=== PATIENT | male | born 1960 | race African-American/Black ===

== ENCOUNTER 2018-03-15 05:40 | Inpatient (IN) ==
[2018-03-15 06:46] LABS: Basophils % 0.3 % (0.0-0.8); Eosinophils % 0.2 % (0.00-10.9); Hematocrit 43.1 VOL% (42.0-52.0); Hemoglobin 14.7 GM/DL (14.0-18.0); Immature Granulocytes % 0.6 %; Immature Granulocytes Absolute 0.07 #; Lymphocytes # 0.9 10*3/uL (1.4-4.0); Lymphocytes % 7.2 % (21.2-54.2); Mean Corpuscular HGB Conc 34.1 GM/DL (32-36); Mean Corpuscular Hemoglobin 33 PG (27-34); Mean Corpuscular Volume 95.6 FL (87-102); Mean Platelet Volume 10.7 FL (9.6-12.0); Monocytes # 0.6 10*3/uL (0.11-0.8); Monocytes % 4.6 % (1.7-12.7); Neutrophils # 11.1 10*3/uL (1.4-7.4); Neutrophils % 87.1 % (38.7-73.9); Platelet Count 173 T/CUMM (130-400); Red Blood Count 4.51 MC/CUMM (3.8-5.5); Red Cell Distribution Width 14.9 % (9.3-17.3); White Blood Count 12.7 T/CUMM (4-12)
[2018-03-15 06:54] LABS: INR 1.2; PT Patient Result 12.6 SECS
[2018-03-15] MEDS ORDERED: FUROSEMIDE 40 MG/4 ML VIAL IV STA (06:55)
[2018-03-15 07:26] LABS: Alanine Aminotransferase 110 U/L (16-61); Albumin 3.3 G/DL (3.4-5.0); Alkaline Phosphatase 66 U/L (45-117); Aspartate Amino Transferase 147 U/L (0-37); Blood Urea Nitrogen 14 MG/DL (7-18); Calcium 8.5 MG/DL (8.5-10.1); Glucose 114 MG/DL (74-106); Osmolality,Calculated 278.5 MOS/KG (273-304); Potassium 3.7 MMOL/L (3.5-5.1); Sodium 139 MMOL/L (136-145); Total Protein 7.6 G/DL (6.4-8.3)
[2018-03-15 07:28] LABS: Troponin I Only 0.094 NG/ML (0.00-0.045)
[2018-03-15] MEDS: HEPARIN 5,000 UNIT/1 ML VIAL SUBCUT SCH (15:14)
[2018-03-15] MEDS: FUROSEMIDE 40 MG/4 ML VIAL IV SCH (15:32)
[2018-03-15] MEDS: ACETAMINOPHEN 325 MG TABLET PO PRN (16:33)
[2018-03-15] MEDS: MAGNESIUM OXIDE 400 MG TABLET PO SCH (20:59)
[2018-03-15] MEDS ORDERED: CARVEDILOL 6.25 MG TABLET PO SCH (21:00)
[2018-03-15] MEDS: CARVEDILOL 12.5 MG TABLET PO SCH (21:00)
[2018-03-15] MEDS: TERAZOSIN 5 MG CAPSULE PO SCH (21:00)
[2018-03-16] MEDS: HEPARIN 5,000 UNIT/1 ML VIAL SUBCUT SCH ×2 (03:59→15:48)
[2018-03-16 06:17] LABS: Basophils % 0.5 % (0.0-0.8); Eosinophils # 0.1 10*3/uL (0.0-0.87); Eosinophils % 1.7 % (0.00-10.9); Hematocrit 41.5 VOL% (42.0-52.0); Hemoglobin 13.8 GM/DL (14.0-18.0); Immature Granulocytes % 0.5 %; Immature Granulocytes Absolute 0.03 #; Lymphocytes # 2.2 10*3/uL (1.4-4.0); Lymphocytes % 33.1 % (21.2-54.2); Mean Corpuscular HGB Conc 33.3 GM/DL (32-36); Mean Corpuscular Hemoglobin 32 PG (27-34); Mean Corpuscular Volume 96.5 FL (87-102); Mean Platelet Volume 12.6 FL (9.6-12.0); Monocytes # 0.6 10*3/uL (0.11-0.8); Monocytes % 9.7 % (1.7-12.7); Neutrophils # 3.5 10*3/uL (1.4-7.4); Neutrophils % 54.5 % (38.7-73.9); Red Cell Distribution Width 15.2 % (9.3-17.3)
[2018-03-16 06:21] LABS: Risk Ratio 3.97; VLDL CHOLESTEROL 23.2 MG/DL
[2018-03-16 06:22] LABS: Platelet Count 120 T/CUMM (130-400); White Blood Count 6.5 T/CUMM (4-12)
[2018-03-16 06:25] LABS: Albumin 3.1 G/DL (3.4-5.0); Bilirubin,Total 0.7 MG/DL (0.2-1.0); Calcium 8.5 MG/DL (8.5-10.1); Osmolality,Calculated 279.5 MOS/KG (273-304); Potassium 3.4 MMOL/L (3.5-5.1); Total Protein 7.4 G/DL (6.4-8.3)
[2018-03-16] MEDS: FUROSEMIDE 40 MG/4 ML VIAL IV SCH ×2 (08:58→18:13)
[2018-03-16] MEDS: POTASSIUM CHLORIDE 20 MEQ TABLET PO PRN ×3 (10:04→14:20)
[2018-03-16] MEDS: ASPIRIN EC 81 MG TABLET PO SCH (10:12)
[2018-03-16] MEDS: CARVEDILOL 12.5 MG TABLET PO SCH ×2 (10:13→22:08)
[2018-03-16] MEDS: MAGNESIUM OXIDE 400 MG TABLET PO SCH ×2 (10:15→22:07)
[2018-03-16] MEDS: LOSARTAN 25 MG TABLET PO SCH (10:16)
[2018-03-16] MEDS: POTASSIUM CHLORIDE 20 MEQ TABLET PO SCH (10:16)
[2018-03-16] MEDS: THIAMINE 100 MG TABLET PO SCH (10:17)
[2018-03-16] MEDS: OMEGA 3 ACID ETHYL ESTERS 1 GM CAPSULE PO SCH (10:17)
[2018-03-16] MEDS: PANTOPRAZOLE 40 MG TABLET PO SCH (10:18)
[2018-03-16] MEDS: ALLOPURINOL 100 MG TABLET PO SCH (10:20)
[2018-03-16] MEDS ORDERED: POTASSIUM CHLORIDE RIDER 10 MEQ in PREMIX 1 EACH IV PRN (14:44)
[2018-03-16] MEDS ORDERED: MAGNESIUM SULF RIDER 2 GM in PREMIX 1 EACH IV PRN (14:44)
[2018-03-16] MEDS ORDERED: diphenhydrAMINE CAP 25 MG CAPSULE PO ONE (14:44)
[2018-03-16] MEDS ORDERED: DIAZEPAM 5 MG TABLET PO ONE (14:44)
[2018-03-16] MEDS: TERAZOSIN 5 MG CAPSULE PO SCH (22:07)
[2018-03-17] MEDS: HEPARIN 5,000 UNIT/1 ML VIAL SUBCUT SCH (03:28)
[2018-03-17] MEDS ORDERED: diphenhydrAMINE CAP 25 MG CAPSULE PO ONE (06:00)
[2018-03-17] MEDS ORDERED: DIAZEPAM 5 MG TABLET PO ONE (06:00)
[2018-03-17 08:36] LABS: Basophils % 0.5 % (0.0-0.8); Eosinophils # 0.1 10*3/uL (0.0-0.87); Eosinophils % 1.4 % (0.00-10.9); Hematocrit 44.1 VOL% (42.0-52.0); Hemoglobin 14.8 GM/DL (14.0-18.0); Immature Granulocytes % 0.3 %; Immature Granulocytes Absolute 0.02 #; Lymphocytes # 2.2 10*3/uL (1.4-4.0); Lymphocytes % 29.9 % (21.2-54.2); Mean Corpuscular HGB Conc 33.6 GM/DL (32-36); Mean Corpuscular Hemoglobin 32 PG (27-34); Mean Corpuscular Volume 96.5 FL (87-102); Mean Platelet Volume 11.5 FL (9.6-12.0); Monocytes # 0.6 10*3/uL (0.11-0.8); Monocytes % 8.2 % (1.7-12.7); Neutrophils # 4.4 10*3/uL (1.4-7.4); Neutrophils % 59.7 % (38.7-73.9); Platelet Count 162 T/CUMM (130-400); Red Blood Count 4.57 MC/CUMM (3.8-5.5); White Blood Count 7.3 T/CUMM (4-12)
[2018-03-17 08:54] LABS: Osmolality,Calculated 276.7 MOS/KG (273-304); Potassium 4.5 MMOL/L (3.5-5.1)
[2018-03-17] MEDS: ASPIRIN EC 81 MG TABLET PO SCH (09:28)
[2018-03-17] MEDS: LOSARTAN 25 MG TABLET PO SCH (09:28)
[2018-03-17] MEDS: POTASSIUM CHLORIDE 20 MEQ TABLET PO SCH (09:28)
[2018-03-17] MEDS: CARVEDILOL 12.5 MG TABLET PO SCH (09:28)
[2018-03-17] MEDS: OMEGA 3 ACID ETHYL ESTERS 1 GM CAPSULE PO SCH (09:28)
[2018-03-17] MEDS: MAGNESIUM OXIDE 400 MG TABLET PO SCH ×2 (09:29→21:49)
[2018-03-17] MEDS: FUROSEMIDE 40 MG/4 ML VIAL IV SCH ×2 (09:29→17:30)
[2018-03-17] MEDS: PANTOPRAZOLE 40 MG TABLET PO SCH (09:29)
[2018-03-17] MEDS: THIAMINE 100 MG TABLET PO SCH (09:29)
[2018-03-17] MEDS: ALLOPURINOL 100 MG TABLET PO SCH (09:29)
[2018-03-17] MEDS ORDERED: SODIUM CHLORIDE 0.9% 1,000 ML IV SCH (10:00)
[2018-03-17] MEDS ORDERED: MIDAZOLAM 2 MG/2 ML VIAL ONE (13:20)
[2018-03-17] MEDS ORDERED: fentaNYL 100 MCG/2 ML VIAL ONE (13:20)
[2018-03-17] MEDS ORDERED: LIDOCAINE 1% 20 ML VIAL ONE (13:20)
[2018-03-17] MEDS ORDERED: HEPARIN 5,000 UNIT/1 ML VIAL ONE (13:33)
[2018-03-17] MEDS ORDERED: TIROFIBAN 5,000 MCG/100 ML PREMIX IV ONE (13:40)
[2018-03-17] MEDS ORDERED: ASPIRIN 325 MG TABLET ONE (13:40)
[2018-03-17] MEDS ORDERED: NITROGLYCERIN DRIP 50 MG/250 ML BOTTLE IV ONE (14:28)
[2018-03-17] MEDS ORDERED: TICAGRELOR 90 MG TABLET ONE (14:39)
[2018-03-17] MEDS ORDERED: FUROSEMIDE 40 MG/4 ML VIAL ONE (15:09)
[2018-03-17] MEDS ORDERED: FUROSEMIDE 40 MG/4 ML VIAL IV STA (15:19)
[2018-03-17] MEDS ORDERED: ALBUTEROL/IPRATROPIUM 3 ML NEB RESP TX STA (15:40)
[2018-03-17 17:38] LABS: Troponin I Only 0.929 NG/ML (0.00-0.045)
[2018-03-17] MEDS: TICAGRELOR 90 MG TABLET PO SCH (21:48)
[2018-03-17] MEDS: ROSUVASTATIN 10 MG TABLET PO SCH (21:48)
[2018-03-17] MEDS: TERAZOSIN 5 MG CAPSULE PO SCH (21:48)
[2018-03-18 00:38] LABS: Troponin I Only 0.976 NG/ML (0.00-0.045)
[2018-03-18 04:19] LABS: Basophils % 0.3 % (0.0-0.8); Eosinophils % 0.5 % (0.00-10.9); Hematocrit 43.8 VOL% (42.0-52.0); Hemoglobin 14.5 GM/DL (14.0-18.0); Immature Granulocytes % 0.3 %; Immature Granulocytes Absolute 0.03 #; Lymphocytes # 1.6 10*3/uL (1.4-4.0); Lymphocytes % 18.3 % (21.2-54.2); Mean Corpuscular HGB Conc 33.1 GM/DL (32-36); Mean Corpuscular Hemoglobin 32 PG (27-34); Mean Corpuscular Volume 95.8 FL (87-102); Mean Platelet Volume 11.3 FL (9.6-12.0); Monocytes # 0.8 10*3/uL (0.11-0.8); Monocytes % 9.3 % (1.7-12.7); Neutrophils # 6.3 10*3/uL (1.4-7.4); Neutrophils % 71.3 % (38.7-73.9); Platelet Count 181 T/CUMM (130-400); Red Blood Count 4.57 MC/CUMM (3.8-5.5); Red Cell Distribution Width 14.8 % (9.3-17.3); White Blood Count 8.8 T/CUMM (4-12)
[2018-03-18 04:43] LABS: Albumin 3.3 G/DL (3.4-5.0); Osmolality,Calculated 281.3 MOS/KG (273-304); Potassium 3.5 MMOL/L (3.5-5.1); Total Protein 8.1 G/DL (6.4-8.3)
[2018-03-18] MEDS: FUROSEMIDE 40 MG/4 ML VIAL IV SCH ×2 (08:10→17:00)
[2018-03-18 08:17] LABS: Troponin I Only 0.967 NG/ML (0.00-0.045)
[2018-03-18] MEDS: ASPIRIN EC 81 MG TABLET PO SCH (09:00)
[2018-03-18] MEDS: PANTOPRAZOLE 40 MG TABLET PO SCH (09:00)
[2018-03-18] MEDS: LOSARTAN 25 MG TABLET PO SCH (09:00)
[2018-03-18] MEDS: MAGNESIUM OXIDE 400 MG TABLET PO SCH ×2 (09:00→21:24)
[2018-03-18] MEDS: ALLOPURINOL 100 MG TABLET PO SCH (09:00)
[2018-03-18] MEDS: OMEGA 3 ACID ETHYL ESTERS 1 GM CAPSULE PO SCH (09:00)
[2018-03-18] MEDS: THIAMINE 100 MG TABLET PO SCH (09:00)
[2018-03-18] MEDS: POTASSIUM CHLORIDE 20 MEQ TABLET PO SCH (09:00)
[2018-03-18] MEDS: TICAGRELOR 90 MG TABLET PO SCH (09:08)
[2018-03-18] MEDS ORDERED: CLOPIDOGREL 300 MG TABLET PO ONE (09:10)
[2018-03-18] MEDS: ACETAMINOPHEN 325 MG TABLET PO PRN ×2 (10:45→21:32)
[2018-03-18] MEDS ORDERED: INSULIN REGULAR 100 UNIT/ML ONE (11:43)
[2018-03-18] MEDS: CARVEDILOL 3.125 MG TABLET PO SCH (19:21)
[2018-03-18] MEDS: ROSUVASTATIN 10 MG TABLET PO SCH (21:25)
[2018-03-18] MEDS: TERAZOSIN 5 MG CAPSULE PO SCH (21:25)
[2018-03-19 05:38] LABS: Calcium 8.6 MG/DL (8.5-10.1); Osmolality,Calculated 282.3 MOS/KG (273-304); Potassium 3.7 MMOL/L (3.5-5.1)
[2018-03-19 08:39] VITALS: BP 128/84
[2018-03-19] MEDS: OMEGA 3 ACID ETHYL ESTERS 1 GM CAPSULE PO SCH (08:51)
[2018-03-19] MEDS: POTASSIUM CHLORIDE 20 MEQ TABLET PO SCH (08:51)
[2018-03-19] MEDS: THIAMINE 100 MG TABLET PO SCH (08:52)
[2018-03-19] MEDS: ASPIRIN EC 81 MG TABLET PO SCH (08:53)
[2018-03-19] MEDS: ALLOPURINOL 100 MG TABLET PO SCH (08:53)
[2018-03-19] MEDS: MAGNESIUM OXIDE 400 MG TABLET PO SCH (08:54)
[2018-03-19] MEDS: PANTOPRAZOLE 40 MG TABLET PO SCH (08:54)
[2018-03-19] MEDS: CARVEDILOL 3.125 MG TABLET PO SCH (08:55)
[2018-03-19] MEDS: LOSARTAN 25 MG TABLET PO SCH (08:55)
[2018-03-19] MEDS: FUROSEMIDE 40 MG/4 ML VIAL IV SCH (08:56)
[2018-03-19] MEDS ORDERED: CLOPIDOGREL 75 MG TABLET PO SCH (09:00)
== END 2018-03-19 15:50 | disposition home or self-care (01) | DRG 246 ==
LOC: N.ED 05:40 → N.EDINP 09:24 → SUATTDRO 09:24 → N.2E 10:18 → N.TELES 03-17 17:16 → N.ICU 03-17 22:05
PROVIDERS: ADMIT Internal Medicine; ATTEND Internal Medicine
PROC: CLCCHCL (ICD-10-PCS; 2018-03-17 13:45)

== ENCOUNTER 2018-12-19 11:14 | Inpatient (IN) ==
[2018-12-19] MEDS ORDERED: AMPICILLIN/SULBACTAM 3,000 MG in SODIUM CHLORIDE 0.9% 100 ML IV STA (12:25)
[2018-12-19] MEDS ORDERED: SODIUM CHLORIDE 0.9% 1,000 ML IV STA (12:25)
[2018-12-19 13:50] LABS: Basophils % 0.5 % (0.0-0.8); Eosinophils # 0.1 10*3/uL (0.0-0.87); Eosinophils % 1.6 % (0.00-10.9); Hematocrit 41.4 VOL% (42.0-52.0); Hemoglobin 13.7 GM/DL (14.0-18.0); Immature Granulocytes % 0.4 %; Immature Granulocytes Absolute 0.03 #; Lymphocytes # 1.8 10*3/uL (1.4-4.0); Lymphocytes % 24.5 % (21.2-54.2); Mean Corpuscular HGB Conc 33.1 GM/DL (32-36); Mean Corpuscular Hemoglobin 32 PG (27-34); Mean Corpuscular Volume 96.5 FL (87-102); Mean Platelet Volume 10.5 FL (9.6-12.0); Monocytes # 0.7 10*3/uL (0.11-0.8); Neutrophils # 4.6 10*3/uL (1.4-7.4); Platelet Count 179 T/CUMM (130-400); Red Blood Count 4.29 MC/CUMM (3.8-5.5); Red Cell Distribution Width 14.6 % (9.3-17.3); White Blood Count 7.3 T/CUMM (4-12)
[2018-12-19 14:13] LABS: Bilirubin,Total 0.4 MG/DL (0.2-1.0); Calcium 8.4 MG/DL (8.5-10.1); Osmolality,Calculated 276.5 MOS/KG (273-304); Potassium 3.4 MMOL/L (3.5-5.1); Total Protein 7.9 G/DL (6.4-8.3)
[2018-12-19 14:38] LABS: Apearance,Urine CLEAR (Clear); Bilirubin,Urine Negative (Negative); Blood, Urine Small mg/dL (Negative); Glucose,Urine (UA) Negative (Negative); Ketones,Urine Negative (Negative); Mucus,Urine Occasional /LPF (Occasional); Nitrite,Urine Negative (Negative); Protein,Urine Negative; RBC,Urine 1 /HPF (0-4); Squamous Epithelial Cell,Urine Occasional /HPF (0-10); Urine Color Straw (Yellow); Urine Specific Gravity 1.034 (1.001-1.035); Urine Urobilinogen < 2.0 EU/DL (0.2-1.0); WBC,Urine <1 /HPF (0-6)
[2018-12-19] MEDS ORDERED: ONDANSETRON 4 MG/2 ML VIAL IV PRN (14:45)
[2018-12-19] MEDS ORDERED: MORPHINE 4 MG/1 ML VIAL IV PRN (14:45)
[2018-12-19] MEDS ORDERED: LORazepam 2 MG/1 ML VIAL IV PRN (14:51)
[2018-12-19] MEDS ORDERED: BISACODYL 5 MG TABLET PO ONE (15:08)
[2018-12-19] MEDS: NICOTINE 21 MG/24 HR PATCH TRANSDERM SCH (16:56)
[2018-12-19] MEDS: ENOXAPARIN 40 MG/0.4 ML SYRINGE SUBCUT SCH (16:56)
[2018-12-19] MEDS: PIPERACILLIN/TAZOBACTAM 3,375 MG in SODIUM CHLORIDE 0.9% 100 ML IV SCH ×2 (16:57→23:41)
[2018-12-19] MEDS: POTASSIUM CHLORIDE 20 MEQ TABLET PO SCH (21:40)
[2018-12-19] MEDS: TERAZOSIN 5 MG CAPSULE PO SCH (21:40)
[2018-12-19] MEDS: ATORVASTATIN 20 MG TABLET PO SCH (21:41)
[2018-12-19] MEDS: CARVEDILOL 25 MG TABLET PO SCH (21:43)
[2018-12-20 05:05] LABS: Basophils % 0.4 % (0.0-0.8); Eosinophils # 0.1 10*3/uL (0.0-0.87); Eosinophils % 1.4 % (0.00-10.9); Hemoglobin 12.6 GM/DL (14.0-18.0); Immature Granulocytes % 0.4 %; Immature Granulocytes Absolute 0.03 #; Lymphocytes # 1.6 10*3/uL (1.4-4.0); Lymphocytes % 20.8 % (21.2-54.2); Mean Corpuscular HGB Conc 33.2 GM/DL (32-36); Mean Corpuscular Hemoglobin 31 PG (27-34); Mean Corpuscular Volume 94.3 FL (87-102); Mean Platelet Volume 10.6 FL (9.6-12.0); Monocytes # 0.7 10*3/uL (0.11-0.8); Monocytes % 8.8 % (1.7-12.7); Neutrophils # 5.3 10*3/uL (1.4-7.4); Neutrophils % 68.2 % (38.7-73.9); Platelet Count 160 T/CUMM (130-400); Red Blood Count 4.03 MC/CUMM (3.8-5.5); Red Cell Distribution Width 14.6 % (9.3-17.3); White Blood Count 7.8 T/CUMM (4-12)
[2018-12-20 05:24] LABS: Calcium 7.9 MG/DL (8.5-10.1); Osmolality,Calculated 280.1 MOS/KG (273-304); Potassium 2.9 MMOL/L (3.5-5.1)
[2018-12-20] MEDS: PIPERACILLIN/TAZOBACTAM 3,375 MG in SODIUM CHLORIDE 0.9% 100 ML IV SCH ×3 (06:29→23:41)
[2018-12-20] MEDS: POTASSIUM CHLORIDE RIDER 10 MEQ in PREMIX 1 EACH IV SCH ×4 (06:50→12:17)
[2018-12-20] MEDS: POLYETHYLENE GLYCOL POWDER 17 GM PACK PO SCH (08:43)
[2018-12-20] MEDS: NICOTINE 21 MG/24 HR PATCH TRANSDERM SCH (08:43)
[2018-12-20] MEDS: MULTIVITAMIN (CENTRUM) TABLET PO SCH (08:44)
[2018-12-20] MEDS: POTASSIUM CHLORIDE 20 MEQ TABLET PO SCH ×2 (08:44→20:37)
[2018-12-20] MEDS: OMEGA 3 ACID ETHYL ESTERS 1 GM CAPSULE PO SCH (08:44)
[2018-12-20] MEDS: CLOPIDOGREL 75 MG TABLET PO SCH (08:44)
[2018-12-20] MEDS: FOLIC ACID 1 MG TABLET PO SCH (08:44)
[2018-12-20] MEDS: ASPIRIN CHEW 81 MG TABLET PO SCH (08:45)
[2018-12-20] MEDS: ALLOPURINOL 100 MG TABLET PO SCH (08:45)
[2018-12-20] MEDS: MAGNESIUM OXIDE 400 MG TABLET PO SCH (08:45)
[2018-12-20] MEDS: FUROSEMIDE 40 MG TABLET PO SCH (08:45)
[2018-12-20] MEDS: CARVEDILOL 25 MG TABLET PO SCH ×2 (08:45→20:37)
[2018-12-20] MEDS: THIAMINE 100 MG TABLET PO SCH (08:45)
[2018-12-20] MEDS ORDERED: PANTOPRAZOLE 40 MG VIAL IV SCH (09:00)
[2018-12-20] MEDS ORDERED: PANTOPRAZOLE 40 MG TABLET PO SCH (09:00)
[2018-12-20] MEDS ORDERED: LOSARTAN 25 MG TABLET PO SCH (09:00)
[2018-12-20] MEDS ORDERED: MAGNESIUM SULF RIDER 2 GM in PREMIX 1 EACH IV ONE (10:00)
[2018-12-20] MEDS: LISINOPRIL 10 MG TABLET PO SCH (13:32)
[2018-12-20] MEDS: ENOXAPARIN 40 MG/0.4 ML SYRINGE SUBCUT SCH (15:04)
[2018-12-20] MEDS: TERAZOSIN 5 MG CAPSULE PO SCH (20:37)
[2018-12-20] MEDS: ATORVASTATIN 20 MG TABLET PO SCH (20:37)
[2018-12-21] MEDS ORDERED: hydrALAZINE 25 MG TABLET PO PRN (00:37)
[2018-12-21 04:11] LABS: Basophils % 0.3 % (0.0-0.8); Eosinophils # 0.2 10*3/uL (0.0-0.87); Eosinophils % 2.5 % (0.00-10.9); Hematocrit 38.3 VOL% (42.0-52.0); Hemoglobin 12.4 GM/DL (14.0-18.0); Immature Granulocytes % 0.2 %; Immature Granulocytes Absolute 0.01 #; Lymphocytes # 1.9 10*3/uL (1.4-4.0); Lymphocytes % 29.4 % (21.2-54.2); Mean Corpuscular HGB Conc 32.4 GM/DL (32-36); Mean Corpuscular Hemoglobin 31 PG (27-34); Mean Platelet Volume 10.5 FL (9.6-12.0); Monocytes # 0.6 10*3/uL (0.11-0.8); Monocytes % 8.9 % (1.7-12.7); Neutrophils # 3.8 10*3/uL (1.4-7.4); Neutrophils % 58.7 % (38.7-73.9); Platelet Count 153 T/CUMM (130-400); Red Blood Count 3.95 MC/CUMM (3.8-5.5); Red Cell Distribution Width 14.5 % (9.3-17.3); White Blood Count 6.5 T/CUMM (4-12)
[2018-12-21 04:24] LABS: Calcium 8.4 MG/DL (8.5-10.1); Osmolality,Calculated 281.1 MOS/KG (273-304); Potassium 3.5 MMOL/L (3.5-5.1)
[2018-12-21] MEDS: PIPERACILLIN/TAZOBACTAM 3,375 MG in SODIUM CHLORIDE 0.9% 100 ML IV SCH (06:15)
[2018-12-21] MEDS ORDERED: PANTOPRAZOLE 40 MG TABLET PO SCH (09:00)
[2018-12-21] MEDS ORDERED: CIPROFLOXACIN 500 MG TABLET PO SCH (09:00)
[2018-12-21] MEDS: OMEGA 3 ACID ETHYL ESTERS 1 GM CAPSULE PO SCH (10:15)
[2018-12-21] MEDS: ASPIRIN CHEW 81 MG TABLET PO SCH (10:15)
[2018-12-21] MEDS: ALLOPURINOL 100 MG TABLET PO SCH (10:15)
[2018-12-21] MEDS: POTASSIUM CHLORIDE 20 MEQ TABLET PO SCH (10:16)
[2018-12-21] MEDS: THIAMINE 100 MG TABLET PO SCH (10:16)
[2018-12-21] MEDS: CARVEDILOL 25 MG TABLET PO SCH (10:16)
[2018-12-21] MEDS: MAGNESIUM OXIDE 400 MG TABLET PO SCH (10:16)
[2018-12-21] MEDS: FUROSEMIDE 40 MG TABLET PO SCH (10:17)
[2018-12-21] MEDS: LISINOPRIL 10 MG TABLET PO SCH (10:17)
[2018-12-21] MEDS: MULTIVITAMIN (CENTRUM) TABLET PO SCH (10:17)
[2018-12-21] MEDS: CLOPIDOGREL 75 MG TABLET PO SCH (10:17)
[2018-12-21] MEDS: NICOTINE 21 MG/24 HR PATCH TRANSDERM SCH (10:18)
[2018-12-21] MEDS: FOLIC ACID 1 MG TABLET PO SCH (10:18)
[2018-12-21] MEDS: POLYETHYLENE GLYCOL POWDER 17 GM PACK PO SCH (10:18)
[2018-12-21 12:53] VITALS: BP 162/89
[2018-12-21] MEDS ORDERED: metroNIDAZOLE 500 MG TABLET PO SCH (14:00)
== END 2018-12-21 14:15 | disposition home or self-care (01) | DRG 392 ==
LOC: N.ED 11:14 → N.EDINP 14:45 → SUATTDRO 14:45 → N.EDINP 15:58 → N.5E 16:01
PROVIDERS: ADMIT Internal Medicine; ATTEND Hospitalist

== ENCOUNTER 2019-01-11 11:26 | Observation (INO) ==
[2019-01-11] MEDS ORDERED: FUROSEMIDE 100 MG/10 ML VIAL IV STA (11:54)
[2019-01-11 12:28] LABS: Basophils % 0.3 % (0.0-0.8); Eosinophils # 0.1 10*3/uL (0.0-0.87); Eosinophils % 0.6 % (0.00-10.9); Hematocrit 40.8 VOL% (42.0-52.0); Hemoglobin 13.5 GM/DL (14.0-18.0); Immature Granulocytes % 0.4 %; Immature Granulocytes Absolute 0.05 #; Lymphocytes % 8.2 % (21.2-54.2); Mean Corpuscular HGB Conc 33.1 GM/DL (32-36); Mean Corpuscular Hemoglobin 31 PG (27-34); Mean Corpuscular Volume 94.4 FL (87-102); Mean Platelet Volume 10.8 FL (9.6-12.0); Monocytes # 0.5 10*3/uL (0.11-0.8); Monocytes % 4.4 % (1.7-12.7); Neutrophils # 10.6 10*3/uL (1.4-7.4); Neutrophils % 86.1 % (38.7-73.9); Platelet Count 208 T/CUMM (130-400); Red Blood Count 4.32 MC/CUMM (3.8-5.5); Red Cell Distribution Width 14.3 % (9.3-17.3); White Blood Count 12.3 T/CUMM (4-12)
[2019-01-11 12:51] LABS: Albumin 3.1 G/DL (3.4-5.0); Bilirubin,Total 0.4 MG/DL (0.2-1.0); Osmolality,Calculated 279.4 MOS/KG (273-304); Potassium 4.1 MMOL/L (3.5-5.1); Total Protein 7.8 G/DL (6.4-8.3)
[2019-01-11] MEDS ORDERED: LEVOFLOXACIN INJ 750 MG in PREMIX 1 EACH IV STA (13:23)
[2019-01-11] MEDS ORDERED: ONDANSETRON 4 MG/2 ML VIAL IV PRN (14:26)
[2019-01-11] MEDS ORDERED: LACTULOSE 20 GM/30 ML UDCUP PO PRN (14:26)
[2019-01-11] MEDS ORDERED: ACETAMINOPHEN 325 MG TABLET PO PRN (14:26)
[2019-01-11] MEDS ORDERED: ALBUTEROL/IPRATROPIUM 3 ML NEB RESP TX PRN (14:30)
[2019-01-11] MEDS ORDERED: POLYETHYLENE GLYCOL POWDER 17 GM PACK PO PRN (14:35)
[2019-01-11 14:59] LABS: Risk Ratio 2.54; Thyroid Stimulating Hormone 0.558 uIU/ml (0.358-3.74); VLDL CHOLESTEROL 29.2 MG/DL
[2019-01-11] MEDS: ENOXAPARIN 40 MG/0.4 ML SYRINGE SUBCUT SCH (16:08)
[2019-01-11] MEDS: methylPREDNISolone SOD SUC 40 MG/1 ML VIAL IV SCH ×2 (16:08→23:14)
[2019-01-11 18:03] LABS: Apearance,Urine CLEAR (Clear); Bilirubin,Urine Negative (Negative); Blood, Urine Small mg/dL (Negative); Glucose,Urine (UA) Negative (Negative); Ketones,Urine Negative (Negative); Mucus,Urine Occasional /LPF (Occasional); Nitrite,Urine Negative (Negative); Protein,Urine Negative; RBC,Urine 1 /HPF (0-4); Squamous Epithelial Cell,Urine Occasional /HPF (0-10); Urine Color Yellow (Yellow); Urine Urobilinogen < 2.0 EU/DL (0.2-1.0); WBC,Urine 3 /HPF (0-6)
[2019-01-11] MEDS: ALBUTEROL 2.5 MG/3 ML NEB RESP TX SCH (19:52)
[2019-01-11] MEDS ORDERED: TERAZOSIN 5 MG CAPSULE PO SCH (21:00)
[2019-01-11] MEDS ORDERED: ATORVASTATIN 20 MG TABLET PO SCH (21:00)
[2019-01-11] MEDS: CARVEDILOL 25 MG TABLET PO SCH (21:26)
[2019-01-11] MEDS: buPROPion SR 100 MG TABLET PO SCH (21:26)
[2019-01-11] MEDS: POTASSIUM CHLORIDE 20 MEQ TABLET PO SCH (21:26)
[2019-01-12] MEDS: ALBUTEROL 2.5 MG/3 ML NEB RESP TX SCH ×3 (00:35→14:03)
[2019-01-12 05:27] LABS: Hematocrit 38.9 VOL% (42.0-52.0); Hemoglobin 12.9 GM/DL (14.0-18.0); Immature Granulocytes % 0.3 %; Immature Granulocytes Absolute 0.02 #; Lymphocytes # 0.7 10*3/uL (1.4-4.0); Lymphocytes % 9.4 % (21.2-54.2); Mean Corpuscular HGB Conc 33.2 GM/DL (32-36); Mean Corpuscular Hemoglobin 31 PG (27-34); Mean Platelet Volume 11.7 FL (9.6-12.0); Monocytes # 0.1 10*3/uL (0.11-0.8); Monocytes % 1.3 % (1.7-12.7); Neutrophils # 6.2 10*3/uL (1.4-7.4); Platelet Count 220 T/CUMM (130-400); Red Blood Count 4.14 MC/CUMM (3.8-5.5); Red Cell Distribution Width 14.1 % (9.3-17.3); White Blood Count 6.9 T/CUMM (4-12)
[2019-01-12 05:53] LABS: Calcium 8.5 MG/DL (8.5-10.1); Osmolality,Calculated 277.8 MOS/KG (273-304); Potassium 4.1 MMOL/L (3.5-5.1)
[2019-01-12] MEDS ORDERED: CLOPIDOGREL 75 MG TABLET PO SCH (09:00)
[2019-01-12] MEDS ORDERED: FUROSEMIDE 40 MG/4 ML VIAL IV SCH (09:00)
[2019-01-12] MEDS ORDERED: MAGNESIUM OXIDE 400 MG TABLET PO SCH (09:00)
[2019-01-12] MEDS ORDERED: FOLIC ACID 1 MG TABLET PO SCH (09:00)
[2019-01-12] MEDS ORDERED: PANTOPRAZOLE 40 MG TABLET PO SCH (09:00)
[2019-01-12] MEDS ORDERED: ASPIRIN CHEW 81 MG TABLET PO SCH (09:00)
[2019-01-12] MEDS ORDERED: OMEGA 3 ACID ETHYL ESTERS 1 GM CAPSULE PO SCH (09:00)
[2019-01-12] MEDS ORDERED: cefTRIAXone 2,000 MG in SYRINGE 1 EACH IV SCH (09:00)
[2019-01-12] MEDS ORDERED: LOSARTAN 25 MG TABLET PO SCH (09:00)
[2019-01-12] MEDS ORDERED: cefTRIAXone 1,000 MG in SYRINGE 1 EACH IV SCH (09:00)
[2019-01-12] MEDS ORDERED: LISINOPRIL 10 MG TABLET PO SCH (09:00)
[2019-01-12] MEDS ORDERED: MULTIVITAMIN (CENTRUM) TABLET PO SCH (09:00)
[2019-01-12] MEDS ORDERED: THIAMINE 100 MG TABLET PO SCH (09:00)
[2019-01-12] MEDS ORDERED: ALLOPURINOL 100 MG TABLET PO SCH (09:00)
[2019-01-12] MEDS: buPROPion SR 100 MG TABLET PO SCH (09:02)
[2019-01-12] MEDS: methylPREDNISolone SOD SUC 40 MG/1 ML VIAL IV SCH ×2 (09:02→15:59)
[2019-01-12] MEDS: CARVEDILOL 25 MG TABLET PO SCH (09:03)
[2019-01-12] MEDS: POTASSIUM CHLORIDE 20 MEQ TABLET PO SCH (09:03)
[2019-01-12] MEDS ORDERED: AZITHROMYCIN INJ 500 MG in SODIUM CHLORIDE 0.9% 250 ML IV SCH (11:00)
[2019-01-12] MEDS: ENOXAPARIN 40 MG/0.4 ML SYRINGE SUBCUT SCH (15:59)
[2019-01-12 16:37] VITALS: BP 152/92
[2019-01-14] MEDS ORDERED: AZITHROMYCIN 250 MG TABLET PO SCH (09:00)
== END 2019-01-12 17:25 | disposition home or self-care (01) ==
LOC: EDBD → EDUNIT# → N.ED 11:26 → N.EDINP 11:26 → N.5E 16:02
PROVIDERS: ADMIT Hospitalist; ATTEND Hospitalist

== ENCOUNTER 2022-03-27 18:21 | Observation (INO) ==
[2022-03-27] MEDS ORDERED: SODIUM CHLORIDE 0.9% 1,000 ML IV STA (18:43)
[2022-03-27 19:39] LABS: Basophils % 0.3 % (0.0-0.8); Eosinophils # 0.1 10*3/uL (0.0-0.87); Eosinophils % 0.7 % (0.00-10.9); Hematocrit 37.7 VOL% (42.0-52.0); Hemoglobin 12.3 GM/DL (14.0-18.0); Immature Granulocytes % 0.6 %; Immature Granulocytes Absolute 0.07 #; Lymphocytes # 1.2 10*3/uL (1.4-4.0); Lymphocytes % 10.2 % (21.2-54.2); Mean Corpuscular HGB Conc 32.6 GM/DL (32-36); Mean Corpuscular Volume 100.3 FL (87-102); Mean Platelet Volume 10.5 FL (9.6-12.0); Monocytes # 0.9 10*3/uL (0.11-0.8); Monocytes % 7.4 % (1.7-12.7); Neutrophils % 80.8 % (38.7-73.9); Platelet Count 177 T/CUMM (130-400); Red Blood Count 3.76 MC/CUMM (3.8-5.5); Red Cell Distribution Width 14.4 % (9.3-17.3); White Blood Count 11.8 T/CUMM (4-12)
[2022-03-27 19:47] LABS: Alanine Aminotransferase 30 U/L (16-61); Albumin 3.6 G/DL (3.4-5.0); Alkaline Phosphatase 40 U/L (45-117); Aspartate Amino Transferase 18 U/L (0-37); Blood Urea Nitrogen 25 MG/DL (7-18); Calcium 9.4 MG/DL (8.5-10.1); Carbon Dioxide 26 MMOL/L (21-32); Chloride 105 MMOL/L (98-107); Glucose 108 MG/DL (74-106); Potassium 5.1 MMOL/L (3.5-5.1); Sodium 136 MMOL/L (136-145); Total Protein 7.5 G/DL (6.4-8.2)
[2022-03-27 19:54] LABS: Bacteria,Urine Occasional /HPF (Few); Hyaline Casts,Urine 37 /LPF (0-3); Mucus,Urine Occasional /LPF (Occasional); RBC,Urine 1 /HPF (0-4); Squamous Epithelial Cell,Urine Occasional /HPF (0-10)
[2022-03-27 19:56] LABS: Protein,Urine Negative (Negative); Urine Appearance Clear (Clear); Urine Color Yellow (Yellow); Urine pH 5.5 (4.5-8.0)
[2022-03-27 19:57] LABS: Bilirubin,Urine Negative (Negative); Blood, Urine Negative (Negative); Glucose,Urine (UA) 200 mg/dL (Negative); Ketones,Urine Negative (Negative); Nitrite,Urine Positive (Negative)
[2022-03-27 19:58] LABS: Urine Urobilinogen 0.2 eU/dL (<2.0)
[2022-03-27] MEDS ORDERED: cefTRIAXone 1,000 MG in SODIUM CHLORIDE 0.9% 100 ML IV STA (20:00)
[2022-03-27 20:11] LABS: Barbiturates Screen,Urine Negative (Negative); Benzodiazepines Screen,Urine Negative (Negative); Cannabinoid Screen,Urine Negative (Negative); Opiate Screen,Urine Negative (Negative); Phencyclidine Screen,Urine Negative (Negative)
[2022-03-27] MEDS ORDERED: ONDANSETRON 4 MG/2 ML VIAL IV PRN (20:25)
[2022-03-27] MEDS ORDERED: GLUCAGON 1 MG VIAL IM PRN (20:25)
[2022-03-27] MEDS ORDERED: ACETAMINOPHEN 325 MG TABLET PO PRN (20:25)
[2022-03-27] MEDS ORDERED: DEXTROSE 10% 250 ML BAG IV PRN (20:38)
[2022-03-27] MEDS ORDERED: MAGNESIUM SULF RIDER 4 GM/100 ML PREMIX IV PRN (20:53)
[2022-03-27] MEDS ORDERED: MAGNESIUM SULF RIDER 2 GM/50 ML PREMIX IV PRN (20:53)
[2022-03-27] MEDS ORDERED: POTASSIUM CHLORIDE 20 MEQ TABLET PO PRN (20:53)
[2022-03-27] MEDS ORDERED: THIAMINE INJ 100 MG, FOLIC ACID INJ 1 MG, MULTIVITAMIN INJ 10 ML in SODIUM CHLORIDE 0.9... IV ONE (20:53)
[2022-03-27] MEDS ORDERED: POTASSIUM CHLORIDE RIDER 10 MEQ/100 ML PREMIX IV PRN (20:53)
[2022-03-27] MEDS ORDERED: HydrOXYzine PAMOATE 25 MG CAPSULE PO PRN (20:58)
[2022-03-27] MEDS: INSULIN REGULAR 100 UNIT/ML SUBCUT SCH (21:04)
[2022-03-27] MEDS: DOCUSATE SODIUM 100 MG CAPSULE PO SCH (21:52)
[2022-03-27] MEDS: ENOXAPARIN 40 MG/0.4 ML SYRINGE SUBCUT SCH (21:52)
[2022-03-27] MEDS ORDERED: SODIUM CHLORIDE 0.9% 1,000 ML IV SCH (22:00)
[2022-03-28 01:46] LABS: Basophils % 0.3 % (0.0-0.8); Eosinophils # 0.1 10*3/uL (0.0-0.87); Eosinophils % 0.6 % (0.00-10.9); Hematocrit 35.1 VOL% (42.0-52.0); Hemoglobin 11.4 GM/DL (14.0-18.0); Immature Granulocytes % 0.4 %; Immature Granulocytes Absolute 0.04 #; Lymphocytes # 1.4 10*3/uL (1.4-4.0); Lymphocytes % 14.1 % (21.2-54.2); Mean Corpuscular HGB Conc 32.5 GM/DL (32-36); Mean Corpuscular Volume 101.2 FL (87-102); Mean Platelet Volume 10.1 FL (9.6-12.0); Monocytes # 0.6 10*3/uL (0.11-0.8); Monocytes % 6.2 % (1.7-12.7); Neutrophils % 78.4 % (38.7-73.9); Platelet Count 153 T/CUMM (130-400); Red Blood Count 3.47 MC/CUMM (3.8-5.5); Red Cell Distribution Width 14.5 % (9.3-17.3); White Blood Count 10.2 T/CUMM (4-12)
[2022-03-28 02:11] LABS: Calcium 8.7 MG/DL (8.5-10.1); Osmolality,Calculated 280.8 MOS/KG (273-304); Potassium 4.6 MMOL/L (3.5-5.1); Risk Ratio 1.91; Thyroid Stimulating Hormone 1.03 uIU/ml (0.358-3.74)
[2022-03-28] MEDS ORDERED: POLYETHYLENE GLYCOL POWDER 17 GM PACK PO PRN (07:01)
[2022-03-28] MEDS ORDERED: SODIUM CHLORIDE 0.9% 1,000 ML IV SCH (07:30)
[2022-03-28] MEDS ORDERED: SODIUM CHLORIDE 0.9% 500 ML IV SCH (07:30)
[2022-03-28] MEDS: INSULIN REGULAR 100 UNIT/ML SUBCUT SCH ×4 (07:39→21:37)
[2022-03-28] MEDS ORDERED: PANTOPRAZOLE 40 MG TABLET PO SCH (09:00)
[2022-03-28] MEDS: DOCUSATE SODIUM 100 MG CAPSULE PO SCH ×2 (09:43→21:36)
[2022-03-28] MEDS: THIAMINE 100 MG TABLET PO SCH (09:43)
[2022-03-28] MEDS: carvediloL 25 MG TABLET PO SCH ×2 (09:43→21:36)
[2022-03-28] MEDS: FOLIC ACID 1 MG TABLET PO SCH (09:43)
[2022-03-28] MEDS: allopurinoL 100 MG TABLET PO SCH (09:43)
[2022-03-28] MEDS: ASPIRIN CHEW 81 MG TABLET PO SCH (09:43)
[2022-03-28] MEDS: TAMSULOSIN 0.4 MG CAPSULE PO SCH (09:45)
[2022-03-28] MEDS ORDERED: TERAZOSIN 5 MG CAPSULE PO SCH (21:00)
[2022-03-28] MEDS ORDERED: ATORVASTATIN 80 MG TABLET PO SCH (21:00)
[2022-03-28] MEDS ORDERED: cefTRIAXone 1,000 MG in SODIUM CHLORIDE 0.9% 100 ML IV SCH (21:00)
[2022-03-28] MEDS: ENOXAPARIN 40 MG/0.4 ML SYRINGE SUBCUT SCH (21:36)
[2022-03-29 05:35] LABS: Basophils % 0.5 % (0.0-0.8); Eosinophils # 0.1 10*3/uL (0.0-0.87); Eosinophils % 1.2 % (0.00-10.9); Hematocrit 31.9 VOL% (42.0-52.0); Hemoglobin 10.6 GM/DL (14.0-18.0); Immature Granulocytes % 0.5 %; Immature Granulocytes Absolute 0.03 #; Lymphocytes # 1.7 10*3/uL (1.4-4.0); Lymphocytes % 26.3 % (21.2-54.2); Mean Corpuscular HGB Conc 33.2 GM/DL (32-36); Mean Corpuscular Volume 99.1 FL (87-102); Mean Platelet Volume 10.1 FL (9.6-12.0); Monocytes # 0.6 10*3/uL (0.11-0.8); Monocytes % 8.7 % (1.7-12.7); Neutrophils % 62.8 % (38.7-73.9); Platelet Count 144 T/CUMM (130-400); Red Blood Count 3.22 MC/CUMM (3.8-5.5); Red Cell Distribution Width 14.6 % (9.3-17.3); White Blood Count 6.5 T/CUMM (4-12)
[2022-03-29 06:01] LABS: Calcium 9.1 MG/DL (8.5-10.1); Osmolality,Calculated 278.4 MOS/KG (273-304); Potassium 4.1 MMOL/L (3.5-5.1)
[2022-03-29] MEDS: INSULIN REGULAR 100 UNIT/ML SUBCUT SCH (08:01)
[2022-03-29] MEDS: TAMSULOSIN 0.4 MG CAPSULE PO SCH (09:00)
[2022-03-29] MEDS ORDERED: OMEGA 3 ACID ETHYL ESTERS 1 GM CAPSULE PO SCH (09:00)
[2022-03-29] MEDS: THIAMINE 100 MG TABLET PO SCH (09:00)
[2022-03-29] MEDS: carvediloL 25 MG TABLET PO SCH (09:00)
[2022-03-29] MEDS: DOCUSATE SODIUM 100 MG CAPSULE PO SCH (09:00)
[2022-03-29] MEDS: FOLIC ACID 1 MG TABLET PO SCH (09:00)
[2022-03-29] MEDS ORDERED: MULTIVITAMIN (BEROCCA) TABLET PO SCH (09:00)
[2022-03-29] MEDS: ASPIRIN CHEW 81 MG TABLET PO SCH (09:00)
[2022-03-29] MEDS: allopurinoL 100 MG TABLET PO SCH (09:00)
[2022-03-29 11:49] VITALS: BP 125/77
== END 2022-03-29 12:37 | disposition home or self-care (01) ==
LOC: N.ED 18:21 → INTOOBSV 20:25 → N.TELES 20:25
PROVIDERS: ADMIT Internal Medicine; ATTEND Internal Medicine